=== PATIENT | male | born 1995 | race Two or more races ===

== ENCOUNTER 2018-10-19 18:22 | Emergency (ER) | payer BC ==
--- NOTE | 2018-10-19 18:32 | EDM.PDOC ---
ED HPI GENERAL MEDICAL PROBLEM - General Chief Complaint: ENT Problem Stated Complaint: RASH WITH SORE THROAT Time Seen by Provider: 10/19/18 18:25 Source of Information: Reports: Patient History Limitations: Reports: No Limitations - History of Present Illness INITIAL COMMENTS - FREE TEXT/NARRATIVE: HISTORY AND PHYSICAL: History of present illness: Patient is a 23-year-old male who presents to the ER today with concerns of rash and sore throat following a sexual encounter in [place]. Patient states he had an unprotected sexual encounter with a female while down in [place] a few weeks ago. Since then he's had diffuse rashes. The rash currently is to bilateral ankles and along his belt/groin line. He states that the rash will sporadically appear and disappear. He states he initially went to the clinic and was treated for "allergies" and sent home on a steroid. He states that since then he is now has a sore throat. He also states he had some blood in his urine with dysuria. He also has noticed a "drip" from his penis over the past few days. Patient denies abdominal or back pain, nausea, vomiting, diarrhea or constipation. He denies any fever, chills, chest pain, shortness of breath or cough. Patient denies any previous significant health history or any prior sexual transmitted infection. Review of systems: As per history of present illness and below otherwise all systems reviewed and negative. Past medical history: As per history of present illness and as reviewed below otherwise noncontributory. Surgical history: As per history of present illness and as reviewed below otherwise noncontributory. Social history: See social history for further information Family history: As per history of present illness and as reviewed below otherwise noncontributory. Physical exam: General: Patient well-developed and well-nourished 23-year-old male. He is alert , oriented, and in no acute distress. Nontoxic appearing. HEENT: Atraumatic, normocephalic, pupils equal and reactive bilaterally, negative for conjunctival pallor or scleral icterus, mucous membranes moist, TMs normal bilaterally, throat is moderately erythematous. There is a 2 mm ulcerous appearing lesion on the posterior oropharynx. Neck supple, nontender, trachea midline. No drooling or trismus noted. No meningeal signs. No hot potato voice noted. Lungs: Clear to auscultation, breath sounds equal bilaterally, chest nontender. Heart: S1S2, regular rate and rhythm without overt murmur Abdomen: Soft, nondistended, nontender. Negative for masses or hepatosplenomegaly. Negative for costovertebral tenderness. Pelvis: Stable nontender. Genitourinary: This was done with consent and a water treatment technician at the bedside. Examination was explained beforehand Negative for rashes, ulcers, scars, nodules , induration, discharge, scrotal masses. Rectal: Deferred. Skin: There are several healing/scared generalized areas of the skin. However, no acute rash or lesion is noted. Otherwise skin is intact, warm, dry. Extremities: Atraumatic, moves all, negative for cords or calf pain. Neurovascular unremarkable. Neuro: Awake, alert, oriented. Cranial nerves II through XII unremarkable. Cerebellum unremarkable. Motor and sensory unremarkable throughout. Exam nonfocal. Notes: Skin is nontoxic and noninfectious looking. Possible enviromental exposure as it is along the belt line and where his boots would cut off. He is unsure of any chemical/exposures. Due to the patient's concern of unprotected sex with the penile drainage with diffuse rash will check for gonorrhea/chlamydia and syphilis. Patient does appear to have urinary tract infection, STD testing is a send out lab, we'll treat with Rocephin and doxycycline at this time. Discussed with patient that if he desires additional STD testing to go to [facility] for this or his primary care provider. Provided education about safe sex practices. Supportive care measures were reviewed and discussed. Voices understanding and is agreeable to plan of care. Denies any further questions or concerns at this time. Diagnostics: Strep, RPR, gonorrhea and Chlamydia, CBC, CMP Therapeutics: Rocephin 250mg, Doxycycline 100mg po Prescription: Doxycycline BID x 14 days Impression: UTI Atopic dermatitis History of unprotected sex Plan: 1. Take the antibiotics as prescribed. Avoid any sexual encounters for the next 2 weeks until treatment is complete and test of care has been provided. 2. For complete STD testing you can go to [facility] or your primary care provider. Follow-up with them in the next 1-2 days. 3. You can use Tylenol and ibuprofen as needed for pain or discomfort. 4. Return to the ED as needed and as discussed. Definitive disposition and diagnosis as appropriate pending reevaluation and review of above. - Related Data Allergies Allergy/AdvReac Type Severity Reaction Status Date / Time No Known Allergies Allergy Verified 10/19/18 18:50 Home Meds: Home Meds . [No Known Home Meds] 10/19/18 [History] ED ROS ENT - Review of Systems Review Of Systems: ROS reveals no pertinent complaints other than HPI. ED EXAM, ENT - Physical Exam Exam: See Below (see dictation) Course - Vital Signs Last Recorded V/S: Last Vital Signs Temp Pulse 99 10/19/18 18:45 Resp 20 10/19/18 18:45 BP 174/104 H 10/19/18 18:45 Pulse Ox 97 10/19/18 18:45 - Orders/Labs/Meds Orders: Active Orders 24 hr Category Date Time Status CHLAMYDIA AND GONORRHEA BY TMA Stat Lab 10/19/18 18:56 Received CMP [COMPREHENSIVE METABOLIC PN,CMP] [CHEM] Stat Lab 10/19/18 19:37 Received CULTURE STREP A CONFIRMATION [RM] Stat Lab 10/19/18 18:55 Results CULTURE URINE [RM] Stat Lab 10/19/18 18:56 Received RPR (SYPHILIS SERO) W/ RFLX [REF] Routine Lab 10/19/18 19:37 Received STREP SCRN A RAPID W CULT CONF [RM] Stat Lab 10/19/18 18:55 Results Labs: Laboratory Tests 10/19/18 10/19/18 Range/Units 18:56 19:37 WBC 8.02 (4.0-11.0) K/uL RBC 5.27 (4.50-5.90) M/uL Hgb 15.5 (13.0-17.0) g/dL Hct 45.0 (38.0-50.0) % MCV 85.4 (80.0-98.0) fL MCH 29.4 (27.0-32.0) pg MCHC 34.4 (31.0-37.0) g/dL RDW Std Deviation 39.6 (28.0-62.0) fl RDW Coeff of Marah 13 (11.0-15.0) % Plt Count 257 (150-400) K/uL MPV 9.80 (7.40-12.00) fL Neut % (Auto) 63.4 (48.0-80.0) % Lymph % (Auto) 29.1 (16.0-40.0) % Norman % (Auto) 5.9 (0.0-15.0) % Eos % (Auto) 1.4 (0.0-7.0) % Baso % (Auto) 0.2 (0.0-1.5) % Neut # (Auto) 5.1 (1.4-5.7) K/uL Lymph # (Auto) 2.3 (0.6-2.4) K/uL Norman # (Auto) 0.5 (0.0-0.8) K/uL Eos # (Auto) 0.1 (0.0-0.7) K/uL Baso # (Auto) 0.0 (0.0-0.1) K/uL Nucleated RBC % 0.0 /100WBC Nucleated RBCs # 0 K/uL Urine Color YELLOW Urine Appearance HAZY Urine pH 5.5 (5.0-8.0) Ur Specific [place] 1.015 (1.001-1.035) Urine Protein NEGATIVE (NEGATIVE) mg/dL Urine Glucose (UA) NEGATIVE (NEGATIVE) mg/dL Urine Ketones NEGATIVE (NEGATIVE) mg/dL Urine Occult Blood NEGATIVE (NEGATIVE) Urine Nitrite NEGATIVE (NEGATIVE) Urine Bilirubin NEGATIVE (NEGATIVE) Urine Urobilinogen 0.2 (<2.0) EU/dL Ur Leukocyte Esterase TRACE H (NEGATIVE) Urine RBC 0-1 (0-2/HPF) Urine WBC 1-5 (0-5/HPF) Ur Epithelial Cells RARE (NONE-FEW) Urine Bacteria FEW (NEGATIVE) Meds: Medications Discontinued Medications Generic Name Dose Route Start Last Admin Trade Name Zahra PRN Reason Stop Dose Admin Doxycycline Hyclate 100 mg 10/19/18 19:53 Vibramycin PO 10/19/18 19:54 ONETIME ONE Ceftriaxone Sodium 250 mg/ 1 mls @ 1 mls/sec 10/19/18 19:53 Lidocaine HCl IM 10/19/18 19:54 ONETIME ONE Lidocaine HCl 2.1 ml 10/19/18 19:56 Xylocaine 1% INJECT 10/19/18 19:57 ONETIME ONE Departure - Departure Time of Disposition: 20:10 Disposition: Home, Self-Care 01 Clinical Impression: History of unprotected sex Urinary tract infection Qualifiers: Urinary tract infection type: site unspecified Hematuria presence: with hematuria Qualified Code(s): N39.0 - Urinary tract infection, site not specified ; R31.9 - Hematuria, unspecified Atopic dermatitis Qualifiers: Atopic dermatitis type: unspecified Qualified Code(s): L20.9 - Atopic dermatitis, unspecified - Discharge Information Instructions: Sexually Transmitted Disease, Urinary Tract Infection, Adult, [id number] Referrals: PCP,Unknown [Primary Care Provider] - Forms: ED Department Discharge Additional Instructions: The following information is given to patients seen in the emergency department who are being discharged to home. This information is to outline your options for follow-up care. We provide all patients seen in our emergency department with a follow-up referral. The need for follow-up, as well as the timing and circumstances, are variable depending upon the specifics of your emergency department visit. If you don't have a primary care physician on staff, we will provide you with a referral. We always advise you to contact your personal physician following an emergency department visit to inform them of the circumstance of the visit and for follow-up with them and/or the need for any referrals to a consulting specialist. The emergency department will also refer you to a specialist when appropriate. This referral assures that you have the opportunity for follow-up care with a specialist. All of these measure are taken in an effort to provide you with optimal care, which includes your follow-up. Under all circumstances we always encourage you to contact your private physician who remains a resource for coordinating your care. When calling for follow-up care, please make the office aware that this follow-up is from your recent emergency room visit. If for any reason you are refused follow-up, please contact the [facility] at and asked to speak to the emergency department charge nurse. [facility] [address] [place] [id number] [address] 1. Take the antibiotics as prescribed. Avoid any sexual encounters for the next 2 weeks until treatment is complete and test of care has been provided. 2. For complete STD testing you can go to [facility] or your primary care provider. Follow-up with them in the next 1-2 days. 3. You can use Tylenol and ibuprofen as needed for pain or discomfort. 4. Return to the ED as needed and as discussed. - My Orders Last 24 Hours: My Active Orders 10/19/18 18:55 CULTURE STREP A CONFIRMATION [RM] Stat STREP SCRN A RAPID W CULT CONF [RM] Stat 10/19/18 18:56 CHLAMYDIA AND GONORRHEA BY TMA Stat CULTURE URINE [RM] Stat 10/19/18 19:37 CMP [COMPREHENSIVE METABOLIC PN,CMP] [CHEM] Stat - Assessment/Plan Last 24 Hours: My Active Orders 10/19/18 18:55 CULTURE STREP A CONFIRMATION [RM] Stat STREP SCRN A RAPID W CULT CONF [RM] Stat 10/19/18 18:56 CHLAMYDIA AND GONORRHEA BY TMA Stat CULTURE URINE [RM] Stat 10/19/18 19:37 CMP [COMPREHENSIVE METABOLIC PN,CMP] [CHEM] Stat
[2018-10-19] MEDS ORDERED: Doxycycline 100 MG Cap PO ONE (19:53)
[2018-10-19] MEDS ORDERED: cefTRIAXone 250 MG in Lidocaine 1% 1 ML IM ONE (19:53)
[2018-10-19] MEDS ORDERED: Lidocaine 1% 20 ML MDV INJECT ONE (19:56)
[2018-10-19 20:28] LABS: CHLORIDE,CL 101 mmol/L (98-107); SODIUM,NA 136 mmol/L (136-148)
== END 2018-10-19 20:45 | disposition home or self-care (01) ==
LOC: MW.ED 18:22
DX: L20.9 Atopic dermatitis, unspecified (principal); N39.0 Urinary tract infection, site not specified
CPT/HCPCS: 36415; 80053; 81001; 85025; 86592; 87081; 87086; 87491; 87591; 87880; 96372; 99283; A9270; J0696; J2001